=== PATIENT | male | born 1960 | race Two or more races ===

== ENCOUNTER 2023-11-22 06:02 | Day surgery (SDC) | payer BC, SELFPAY ==
[2023-11-14 13:15] VITALS: BMI 51.7
[2023-11-14 14:05] LABS: Mean Corp Hgb Conc. 32.6 g/dL (33.0-37.0); Mean Corpuscular Hgb 26.7 pg (27.0-31.0); Mean Platelet Volume 10.8 fL (7.4-10.4); Platelet Count 299 10^3/uL (130-400); Red Blood Cell Count 5.61 10^6/uL (4.70-6.10); Red Cell Dist. Width 14.5 % (11.5-14.5); White Blood Cell Count 15.4 10^3/uL (4.8-10.8)
--- NOTE | 2023-11-16 08:45 | PTCARENOTE ---
Cecy @ Dr. Burkett office notified of patients 15.4 WBC collected on 11/13
--- NOTE | 2023-11-20 07:36 | PTCARENOTE ---
Patients 7/3 ECG abnormal- reviwed by - he requests cardio acknowledgement that patient is stable for surgery. Cecy @ Dr. Burkett office notified of above.
[2023-11-22] VITALS (9 sets, daily range): BP systolic 114–148; BP diastolic 61–80; BMI 51.7
[2023-11-22 06:30] LABS: Glucose - Point of Care 122 mg/dl (70-99)
[2023-11-22] MEDS: NORMOSOL-R 1000 IV (06:35)
[2023-11-22] MEDS: TYLENOL 1000 MG PO (06:40)
[2023-11-22] MEDS: CELEBREX 200 MG PO (06:40)
[2023-11-22] MEDS: DILAUDID 0.25 MG IV ×3 (08:10→08:36)
== END 2023-11-22 09:58 | disposition home or self-care (01) ==
LOC: SDS 06:02
PROVIDERS: ATTENDING PHYSICIAN Orthopaedic Surgery; FAMILY PHYSICIAN Internal Medicine; OTHER PHYSICIAN Internal Medicine Cardiovascular Disease
DX: S83.231A Complex tear of medial meniscus, current injury, right knee, initial encounter (principal); X58.XXXA Exposure to other specified factors, initial encounter; M94.261 Chondromalacia, right knee; M23.41 Loose body in knee, right knee
CPT/HCPCS: 29881; 36415; 82962; 85027; 93005

== ENCOUNTER → 2024-08-20 08:36 | Outpatient (REF) | payer BC, SELFPAY | LOC: RAD 08:36 | PROVIDERS: ATTENDING PHYSICIAN Orthopaedic Surgery; FAMILY PHYSICIAN Internal Medicine | DX: M25.512 Pain in left shoulder (principal) | CPT/HCPCS: 76882 ==